=== PATIENT | male | born 1980 | race Two or more races ===

== ENCOUNTER 2025-05-14 07:58 | Emergency (ER) | payer OTHER, BC, SELFPAY ==
[2025-05-14 08:07] VITALS: BP 154/87; PULSE 76; RESP 18; TEMP 36.9; O2SAT 98
--- NOTE | 2025-05-14 08:13 | XR_ITS ---
Examination: PA lateral chest 2 views TECHNIQUE: Upright PA lateral chest 2 views Date and time: May 14, 2025 0820 hours INDICATIONS: Chest pain shortness of breath beginning today. FINDINGS: Normal heart size. Lungs are clear. The osseous structures are intact IMPRESSION: No active disease.
--- NOTE | 2025-05-14 08:13 | EKG_ITS ---
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
--- NOTE | 2025-05-14 08:14 | PD.EDSOB ---
ED SOB =RME/HPI General Chief Complaint: Shortness of Breath/Dyspnea Stated Complaint: DIFF BREATHING, HEADACHE, NAUSEA, HEAT EXHAUSTION Time Seen by Provider: 05/14/25 08:07 Source: patient Arrival date/time: 05/14/25 07:58 44-year-old male with no known medical history presents to the emergency room with a chief complaint of headache, nausea, dizziness, shortness of breath x 3 days Mode of arrival: ambulatory Limitations: no limitations Related Data Home Medications ?Medication ?Instructions ?Recorded ?Confirmed No Known Home Medications 10/13/20 10/13/20 Allergies Allergy/AdvReac Type Severity Reaction Status Date / Time No Known Allergies Allergy Verified 05/14/25 08:03 ED Exam General Limitations: Present no limitations Course Orders Category Date Time Status Bedside COVID-19 Antigen Test NOW Care 05/14/25 08:14 Active Bedside Influenza A&B Antigen Test NOW Care 05/14/25 08:14 Active EKG (ED ONLY) *Do not use* NOW Care 05/14/25 08:13 Active EKG (ED Only) Stat Exams 05/14/25 08:13 Ordered XR chest 2V Stat Exams 05/14/25 08:13 Ordered Alcohol, Blood Medical Stat Lab 05/14/25 08:14 Ordered B-Type Natriuretic Peptide Stat Lab 05/14/25 08:13 Ordered CBC Stat Lab 05/14/25 08:13 Ordered Comprehensive Metabolic Panel Stat Lab 05/14/25 08:13 Ordered Drug Screen,Urine Stat Lab 05/14/25 08:13 Ordered Troponin I Stat Lab 05/14/25 08:13 Ordered Urinalysis, C/S if Indicated Stat Lab 05/14/25 08:13 Ordered Vital Signs Vital signs: Vital Signs Temperature 98.4 F 05/14/25 08:07 Pulse Rate 76 05/14/25 08:07 Respiratory Rate 18 05/14/25 08:07 Blood Pressure 154/87 H 05/14/25 08:07 Pulse Oximetry (%) 98 05/14/25 08:07 Oxygen Delivery Method Room Air 05/14/25 08:07 Discharge Plan Prescriptions/Referrals Prescriptions/Med Rec: No Action No Known Home Medications Patient/Caregiver Discharge Instructions Print Language: Latvian
[2025-05-14 08:58] LABS: Basophils # (Auto) 0.1 Thou/mm3 (0.0-0.2); Basophils % (Auto) 1 % (0-2.5); Eosinophils # (Auto) 0.2 Thou/mm3 (0.0-0.5); Eosinophils % (Auto) 3 % (0-10); Hematocrit 47.9 % (41.0-53.0); Hemoglobin 16.7 g/dL (13.5-16.0); Immature Granulocytes Auto 0.02 Thou/mm3 (0.00-0.00); Lymphocytes # (Auto) 2.1 Thou/mm3 (1.0-4.8); Lymphocytes % (Auto) 35 % (10-50); Mean Corpuscular HGB Conc 34.9 g/dl (31.0-37.0); Mean Corpuscular Hemoglobin 30.9 pg (25.0-35.0); Mean Corpuscular Volume 89 fL (80-100); Monocytes # (Auto) 0.7 Thou/mm3 (0.0-0.8); Monocytes % (Auto) 12 % (0-12); Neutrophils # (Auto) 2.9 Thou/mm3 (1.8-7.7); Neutrophils % (Auto) 49 % (37-80); Nucleated Red Blood Cell # 0.00 Thou/mm3 (0.00-0.00); Nucleated Red Blood Cell % 0 /100 WBC (0); Platelet Count 208 Thou/mm3 (140-440); RDW Standard Deviation 41.4 fL (35.1-43.9); Red Blood Count 5.41 Miln/mm3 (4.50-5.90); White Blood Count 5.9 Thou/mm3 (3.8-10.6)
[2025-05-14 09:19] LABS: Alanine Aminotransferase 30 U/L (10-49); Albumin, Serum 4.7 gm/dL (3.5-5.0); Albumin/Globulin Ratio 1.8 (1.2-2.2); Alcohol, Blood Medical < 3.0 mg/dL (0-10.0); Alkaline Phosphatase 73 U/L (46-116); Anion Gap 9 (7-16); Aspartate Amino Transferase 24 U/L (0-34); BUN/Creatinine Ratio 11 Ratio (12-20); Bilirubin,Total 0.9 mg/dL (0.3-1.2); Blood Urea Nitrogen 13 mg/dL (9-23); Calcium 10.2 mg/dL (8.3-10.6); Calcium (Corrected) 10.2 mg/dL (8.5-10.1); Carbon Dioxide 28.0 mMol/L (20.0-31.0); Chloride 104 mMol/L (98-107); Creatinine (Component) 1.2 mg/dL (0.6-1.3); Estimated Creatinine Clearance 92.1 mL/min (>60); Globulin 2.6 gm/dL (2.3-3.5); Glucose 87 mg/dL (74-106); Osmolality,Calculated 280 (275-295); Potassium 4.5 mMol/L (3.4-5.1); Sodium 141 mMol/L (136-145); Total Protein 7.3 gm/dL (5.7-8.2); Troponin I < 0.020 ng/mL (0.0-0.045); eGFR > 60 See Note
[2025-05-14 09:36] LABS: B-Type Natriuretic Peptide < 20 pg/mL (0-100)
--- NOTE | 2025-05-14 10:06 | PD.EDRME ---
Rapid Medical Screening Exam RME Arrival date/time: 05/14/25 07:58 44-year-old male with no known medical history presents to the emergency room with a chief complaint of headache, nausea, dizziness, shortness of breath x 3 days I have greeted and performed a focused initial assessment of this patient. A comprehensive ED assessment and evaluation of the patient, analysis of all test results, and completion of the medical decision making process will be conducted by additional ED providers. Chief Complaint: Shortness of Breath/Dyspnea Time Seen by Provider: 05/14/25 08:07 Vital signs: Vital Signs Temperature 98.4 F 05/14/25 08:07 Pulse Rate 76 05/14/25 08:07 Respiratory Rate 18 05/14/25 08:07 Blood Pressure 154/87 H 05/14/25 08:07 Pulse Oximetry (%) 98 05/14/25 08:07 Oxygen Delivery Method Room Air 05/14/25 08:07 Vital signs reviewed by provider: Yes
[2025-05-14 10:30] VITALS: BP 129/84; PULSE 67; RESP 15; O2SAT 100
--- NOTE | 2025-05-14 11:00 | PC.NURSE ---
Patient came in to ER after feeling short of breath, feeling dehydrated, abdominal pain, burning sensation when he voids, he stated that symptoms started on tuesday. 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 He felt really fatigued. Currently VSS, c/o chest pain to the left side that intensifies when he takes a deep breath. He feels nasueated.
[2025-05-14 11:07] LABS: Collection Type, Urine Clean Catch
--- NOTE | 2025-05-14 11:23 | PD.EDADULT ---
ED General RME/HPI General Chief complaint: Shortness of Breath/Dyspnea Stated complaint: DIFF BREATHING, HEADACHE, NAUSEA, DIZZY Time Seen by Provider: 05/14/25 08:07 Arrival date/time: 05/14/25 07:58 RME / HPI RME / HPI narrative: 05/14/25 07:58 44-year-old male with no known medical history presents to the emergency room with a chief complaint of headache, nausea, dizziness, shortness of breath x 3 days I have greeted and performed a focused initial assessment of this patient. A comprehensive ED assessment and evaluation of the patient, analysis of all test results, and completion of the medical decision making process will be conducted by additional ED providers. DR. CARDENAS MAIN ED EVALUATION 44 year old male with no stated medical history presents to the ED for multiple complaints. Reported this morning woke up feeling globally weak, dehydrated , and dizzy. States he went to work and while at work he developed pain to the center of his chest with radiation up to the left side of neck, rated as moderate. Accompanied by feeling short of breath, prompting ED visit. Patient additionally complains of blurred vision with headache yesterday, decreased appetite, abdominal pain, black stool and bright red blood on toilet paper. Patient mentioned 3 days ago Tuesday was working outdoors in the sun and states he has felt unwell since. Denies fevers, chills, sweats, cough, vomiting, diarrhea, constipation, or change in urinary habits. Related Data Home Medications ?Medication ?Instructions ?Recorded ?Confirmed No Known Home Medications 10/13/20 10/13/20 Allergies Allergy/AdvReac Type Severity Reaction Status Date / Time No Known Allergies Allergy Verified 05/14/25 08:03 Review of Systems Review of Systems Systems Reviewed: All systems reviewed, normal except as documented Past Medical History Past Medical History CARDIAC: Positive Hypertension (no medications) Surgical History SURGICAL: Positive Joint Replacement (left wrist surgery at 15 years old) and Knee Sx (right knee (torn meniscus) 10 years ago) Social History SMOKING STATUS: Never smoker SUBSTANCE USE: does not use ED Exam Narrative Physical exam: GENERAL APPEARANCE: alert and oriented x 4, well-developed, well-nourished, no acute distress HEENT: Normocephalic, atraumatic; pupils equal, round, reactive to light; EOMI; mucous membranes pink, moist; oropharynx clear NECK: Supple LUNGS: CTABL; no wheezes, no rales, no rhonchi HEART: Regular rate, regular rhythm; normal S1, S2; no murmurs ABDOMEN: non distended; normal BS; soft, no tenderness, no guarding, no rebound; no masses, no organomegaly, no hernia BACK: no CVA tenderness EXTREMITIES: atraumatic; no edema NEUROLOGIC: awake; alert and oriented x4; cranial nerves II-XII grossly intact; no focal sensory or motor deficits PSYCHIATRIC: appropriate mood and affect SKIN: warm, dry, normal color; no rashes Course Quality Measures none Orders Category Date Time Status Bedside COVID-19 Antigen Test NOW Care 05/14/25 08:14 Active Bedside Influenza A&B Antigen Test NOW Care 05/14/25 08:14 Completed EKG (ED ONLY) *Do not use* NOW Care 05/14/25 08:13 Completed Occult Blood,Stool (Nursing) NOW Care 05/14/25 11:48 Active EKG (ED Only) Stat Exams 05/14/25 08:13 Draft XR chest 2V Stat Exams 05/14/25 08:13 Completed Alcohol, Blood Medical Stat Lab 05/14/25 08:47 Completed B-Type Natriuretic Peptide Stat Lab 05/14/25 08:47 Completed CBC Stat Lab 05/14/25 08:47 Completed Comprehensive Metabolic Panel Stat Lab 05/14/25 08:47 Completed Drug Screen,Urine Stat Lab 05/14/25 12:56 Completed Troponin I Stat Lab 05/14/25 08:47 Completed Urinalysis, C/S if Indicated Stat Lab 05/14/25 11:05 Completed Ondansetron Inj [Zofran Inj] Med 05/14/25 11:31 Discontinued 4 mg IVP X1 ONE Sodium Chloride 0.9% 1000 ml [Ns] 1,000 ml Med 05/14/25 11:31 Discontinued IV 999 mls/hr Sodium Chloride 0.9% 1000 ml [Ns] 1,000 ml Med 05/14/25 11:31 Discontinued IV 999 mls/hr Vital Signs Vital signs: Vital Signs Temperature 98.4 F 05/14/25 08:07 Pulse Rate 76 05/14/25 08:07 Respiratory Rate 18 05/14/25 08:07 Blood Pressure 154/87 H 05/14/25 08:07 Pulse Oximetry (%) 98 05/14/25 08:07 Oxygen Delivery Method Room Air 05/14/25 08:07 Pulse ox is 98% on room air which is adequate. Discharge Plan Plan Patient Disposition: HOME (Self Care) Prescriptions/Referrals Prescriptions/Med Rec: No Action No Known Home Medications Referrals: Lenka Ye MD [Physician] - Carey Song NP [Primary Care Provider] - In 1 week Problem List Clinical Impression: Rectal bleeding, Mild dehydration Patient/Caregiver Discharge Instructions Education Materials: ED Dehydration (Adult), ED Lower GI Bleeding (Stable) Additional Instructions: Follow up with Dr. Ye. Call office for appointment. Print Language: Paraguayan Stand Alone Forms: Phyllis Award Info., Patient Portal Info Letter MDM Narrative MDM hospital course: IJennifer, am scribing for and in the presence of Dr. Cardenas. Stool guaiac negative. I consulted with GI Dr. Ye. Discussed patients PMHx, HPI, ED course, exam findings, labs, and radiology results. States patient can follow up with him on an outpatient basis. Clinical Information Provided by patient Medical Records Reviewed [facility] Meds/Rx Considered, not Ordered None Labs/Rad/Tests considered, not Ordered None Chronic Illness/Social Conditions which may negatively complicate care or outcome(s)-explain: None or not applicable EKG EKG Interpretation narrative: 05/14/3035 @ 08:18 AM. NSR, rate 73, no acute ischemic changes, no STEMI. Lab Interpretation Lab(s) interpretation(s): CBC and CMP within normal limits. UA negative for infection. UDS positive for marijuana. Imaging Radiology reports / interpretation(s): Ordering Physician: Jimmy Mckeon Date of Service: 05/14/25 Procedure(s): XR chest 2V Accession Number(s): [id number] cc: Jimmy Mckeon; Jarad Gan MD~ Examination: PA lateral chest 2 views TECHNIQUE: Upright PA lateral chest 2 views Date and time: May 14, 2025 0820 hours INDICATIONS: Chest pain shortness of breath beginning today. FINDINGS: Normal heart size. Lungs are clear. The osseous structures are intact IMPRESSION: No active disease. Dictated By: Jarad Gan MD Signed By: <Electronically signed by Jarad Gan MD in OV> 05/14/25 0851 Medication Administration(s) Medication Administration History Discontinued Medications Sodium Chloride (Ns) 1,000 mls @ 999 mls/hr IV .Q1H1M ONE Stop: 05/14/25 12:31 Last Admin: 05/14/25 13:11 Dose: 999 mls/hr Documented By: WL Sodium Chloride (Ns) 1,000 mls @ 999 mls/hr IV .Q1H1M ONE Stop: 05/14/25 12:31 Ondansetron HCl (Ondansetron Inj 2 Mg/Ml Inj 2 Ml) 4 mg IVP X1 ONE; Protocol Stop: 05/14/25 11:32 Last Admin: 05/14/25 13:11 Dose: 4 mg Documented By: WL See above Diagnosis Most likely dx, and/or detailed dx discussion: Rectal bleeding Dehydration Dispositon Disposition: Discharge Home
[2025-05-14] MEDS: SODIUM CHLORIDE 0.9% 1000 ML 1,000 ML 999 ML IV ×2 (13:11→14:16)
[2025-05-14] MEDS: ONDANSETRON INJ 2 MG/ML INJ 2 ML 4 MG IVP (13:11)
[2025-05-14 13:22] VITALS: BP 134/85; PULSE 72; RESP 19; TEMP 36.8; O2SAT 98
[2025-05-14 13:22] LABS: Bilirubin,Urine Negative (Negative); Blood,Urine Negative (Negative); Clarity,Urine Clear (Clear/Hazy); Color,Urine Lt-Yellow (Lt Yel-Yel); Culture Indicated,Urine Not Indicated; Glucose, Urine Negative (Negative); Ketones,Urine Negative (Negative); Leukocyte Esterase,Urine Negative (Negative); Nitrite,Urine Negative (Negative); PH,Urine 6.5 (5.0-7.0); Protein,Urine Negative (Neg - Trace); RBC,Urine 2 /hpf (0-3); Specific Gravity,Urine 1.024 (1.001-1.035); Squamous Epithelial Cell,Urine < 1 /hpf (0-5); Urobilinogen,Urine Negative mg/dL (0.0-1.0); WBC,Urine 1 /hpf (0-5)
[2025-05-14 13:23] LABS: Amphetamine/Methamp Scrn,U Negative (Negative); Barbiturate Screen,Urine Negative (Negative); Benzodiazepines Screen,Urine Negative (Negative); Benzoylecgonine Screen, Ur Negative (Negative); Fentanyl Screen,Urine Negative (Negative); Opiate Screen,Urine Negative (Negative); THC Screen,Urine Positive (Negative)
[2025-05-14 15:21] VITALS: BP 120/87; PULSE 82; RESP 16; TEMP 36.4; O2SAT 99
[2025-05-14 15:23] VITALS: BP 120/87; PULSE 82; RESP 16; TEMP 36.4; O2SAT 99
== END 2025-05-14 15:25 | disposition home or self-care (01) ==
PROVIDERS: Nurse Practitioner Family; Emergency Provider Emergency Medicine; PCP Nurse Practitioner Family
DX: E86.0 Dehydration (principal); K92.1 Melena; I10 Essential (primary) hypertension
CPT/HCPCS: 36415; 71046; 80053; 80307; 80320; 81001; 83880; 84484; 85025; 87400; 87811; 93005; 96361; 96374; 99284; J2405; J7030; G0480

== ENCOUNTER 2025-06-19 07:25 | Day surgery (SDC) | payer OTHER, BC, SELFPAY ==
[2025-06-18 15:19] VITALS: BMI 29.2
[2025-06-19] VITALS (8 sets, daily range): BP systolic 130–145; BP diastolic 82–100; PULSE 67–80; RESP 13–19; TEMP 36.2–36.7; O2SAT 96–100; BMI 29.0
[2025-06-19] MEDS: SODIUM CHLORIDE 0.9% 500 ML 500 ML 20 ML IV (09:26)
[2025-06-19] MEDS: BENZOCAINE 20% (Hurricaine) SPRAY 1 DOSE TOP (09:26)
[2025-06-19] MEDS: MIDAZOLAM INJ 1 MG/ML VIAL 2 ML (ASD USE ONLY) 2 MG IVP (09:29)
[2025-06-19] MEDS: fentaNYL CIT INJ 50 mCg/ML AMP 2ML (ASD USE ONLY) IVP (09:29)
--- NOTE | 2025-06-19 10:15 | SUR.PHASEII ---
1011 Pt more awake and alert. Denies pain, N/V or difficulty swallowing. Abd remains soft. No mouth bleeding seen. Pt hellen PO fluids.
--- NOTE | 2025-06-19 10:34 | SUR.PHASEII ---
1030 Pt assessment unchanged. No complaints. Pt amb with steady gait. assisting with pt getting dressed. DC instructions given. Aware of new prescription, to be picked up at [facility]. Both state understanding. Pt meets dc criteria-to home.
== END 2025-06-19 10:30 | disposition home or self-care (01) ==
PROVIDERS: PCP Nurse Practitioner Family; Referring Provider Specialist; Visit Provider Specialist
PROC: (CPT 43239; principal; 2025-06-19 10:00)
DX: K22.11 Ulcer of esophagus with bleeding (principal); K64.8 Other hemorrhoids; K29.51 Unspecified chronic gastritis with bleeding
CPT/HCPCS: 43239; A4649; J1200; J2250; J3010; J7999; A9270